=== PATIENT | female | born 1955 | race Caucasian/White ===

== ENCOUNTER → 2017-06-03 | Outpatient (CLI) | payer OTHER | LOC: FIMAGING 11:21 | PROVIDERS: ATTEND Physician Assistant | DX: R05 Cough (principal) ==

== ENCOUNTER 2017-11-07 11:02 | Emergency (ER) | payer OTHER ==
[2017-11-07] MEDS ORDERED: NS 1,000 ML IV ONE (11:53)
--- NOTE | 2017-11-07 11:53 | EDPHY ---
General Time Seen by Provider: 11/07/17 11:36 Narrative: CHIEF COMPLAINT: I think I have a kidney stone HISTORY OF PRESENT ILLNESS: Patient presents with complaints of "I think I have a kidney stone." She reports a sudden onset of left-sided flank pain that started this morning around 9:00 a.m.. Started while she was at work. Constant duration. Moderate to severe. The pain has spontaneously improved prior to arrival here. It was associated with nausea, subjective fever and left lower abdominal pain. At this time she has no complaints of pain. She has 1 previous incident of kidney stone that felt the same to her. No trauma or injury. No bloody stools. No constipation. No abdominal surgeries. REVIEW OF SYSTEMS: 10 systems were reviewed and negative with the exception of the elements mentioned in the history of present illness. PCP: Dr. Hui SPECIALISTS: None PAST MEDICAL HISTORY: Type 2 diabetes, kidney so, hypothyroid, hypertension PAST SURGICAL HISTORY: No surgical history SOCIAL HISTORY: Nonsmoker. Lives here independently. Works as a teacher and elementary education. FAMILY HISTORY: Noncontributory EXAMINATION: General Appearance: Alert, no distress Head: normocephalic, atraumatic Eyes: Pupils equal and round, no conjunctival pallor or injection ENT, Mouth: Mucous membranes moist Neck: Normal inspection, supple, non-tender Respiratory: Lungs are clear to auscultation Cardiovascular: Regular rate and rhythm Gastrointestinal: Abdomen is soft and nondistended. There is left CVA tenderness. No guarding. No rigidity. Bowel sounds are present all 4 quadrants Back: non-tender, no bony abnormalities Neurological: A&O, nonfocal, normal gait Skin: Warm and dry, no rash Extremities: Nontender, no pedal edema Psychiatric: Mood and affect normal DIFFERENTIAL DIAGNOSES: Including but not limited to renal colic, ureteral stone, bladder calculus, cystitis, hydronephrosis, pyelonephritis MDM: 11:50 a.m. Left-sided flank pain with feeling of renal colic for the patient. Her pain has significantly improved since time of departure from her home. Her abdominal exam is unremarkable. Vital signs within normal limits. I have ordered laboratory studies, IV fluid. She is declining pain medication. She is requesting a CT scan to evaluate for the possible stone. I have ordered this at her request and I do feel it is likely she does have a renal colic. 12:30 p.m. Notified by radiologist Dr. Us. Left-sided horseshoe kidney with a 3 mm stone near the UVJ with moderate hydronephrosis. There is a right-sided nonobstructing nephrolithiasis. 12:50 p.m. Patient re-evaluated. I discussed the findings with her. She continues to complain of no pain at this time. We discussed the likelihood of passed stone. We discussed hydronephrosis in the need for increase fluid intake. We discussed the importance of Urology follow-up palpation. We discussed ED precautions for return of pain, fever, difficulty urinating. She will be discharged home with short course of pain medication nausea medication. She is comfortable this plan. She is well-appearing and discharged home stable condition. SUPERVISION: This patient was independently evaluated without direct involvement of or examination by the attending physician. CONSULTATION: None. Urology referral - Diagnostics Imaging Results: Imaging Impressions Abdomen/Pelvis CT 11/07/17 11:53 Impression: 1. 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 2. Nonobstructive right nephrolithiasis. 3. Left perinephric and paracolic fluid. 4. Atherosclerotic aorta without aneurysm. 5. L5-S1 degenerative changes resulting in mild to moderate central canal stenosis. Attention: This CT examination is specifically designed to evaluate patients who are clinically suspected of having acute obstructive uropathy. This examination does not use radiographic contrast, and as such, provides only a limited evaluation of the abdomen, pelvis and retroperitoneum. If there is further clinical suspicion for pathological conditions other than obstructive uropathy, a complete CT evaluation of the abdomen and pelvis utilizing intravenous, oral, and rectal contrast should be considered. Findings and recommendations discussed with Emergency Department physician, Jeffrey Wilkes PA-C at 1235 hour, 11/07/2017. Final report concurs with initial preliminary interpretation. - History Smoking Status: Never smoked - Objective Vital Signs: Initial Vital Signs Temperature (C) 99.1 F 11/07/17 11:11 Heart Rate 93 11/07/17 11:11 Respiratory Rate 18 11/07/17 11:11 Blood Pressure 164/75 H 11/07/17 11:11 O2 Sat (%) 95 11/07/17 11:11 O2 Delivery Mode Room Air Allergies/Adverse Reactions: azithromycin Allergy (Verified 11/07/17 11:15) Penicillins Allergy (Verified 11/07/17 11:15) Sulfa (Sulfonamide Antibiotics) Allergy (Verified 11/07/17 11:15) Home Medications: Medication Instructions Recorded Levothyroxine Sodium 11/07/17 Lisinopril 11/07/17 Metformin HCl 11/07/17 Ondansetron Odt [Zofran Odt 4 mg 4 mg PO Q6 PRN #12 tab 11/07/17 (*)] oxyCODONE HCL/ACETAMINOPHEN 1 each PO Q4-6PRN PRN #5 tablet 11/07/17 [Percocet 5-325 mg Tablet] traMADol 11/07/17 Laboratory Results: Laboratory Results 11/07/17 11:50 11/07/17 11:50 11/07/17 11/07/17 11/07/17 11:50 11:50 11:35 WBC 14.43 10^3/uL H 10^3/uL (3.80-9.50) RBC 5.33 10^6/uL 10^6/uL (4.18-5.33) Hgb 15.6 g/dL g/dL (12.6-16.3) Hct 45.2 % % (38.0-47.0) MCV 84.8 fL fL (81.5-99.8) MCH 29.3 pg pg (27.9-34.1) MCHC 34.5 g/dL g/dL (32.4-36.7) RDW 12.9 % % (11.5-15.2) Plt Count 374 10^3/uL 10^3/uL (150-400) MPV 10.8 fL fL (8.7-11.7) Neut % (Auto) 88.3 % H % (39.3-74.2) Lymph % (Auto) 9.7 % L % (15.0-45.0) [place] % (Auto) 1.5 % L % (4.5-13.0) Eos % (Auto) 0.0 % L % (0.6-7.6) Baso % (Auto) 0.2 % L % (0.3-1.7) Nucleat RBC Rel Count 0.0 % % (0.0-0.2) Absolute Neuts (auto) 12.73 10^3/uL H 10^3/uL (1.70-6.50) Absolute Lymphs (auto) 1.40 10^3/uL 10^3/uL (1.00-3.00) Absolute Monos (auto) 0.22 10^3/uL L 10^3/uL (0.30-0.80) Absolute Eos (auto) 0.00 10^3/uL L 10^3/uL (0.03-0.40) Absolute Basos (auto) 0.03 10^3/uL 10^3/uL (0.02-0.10) Absolute Nucleated RBC 0.00 10^3/uL 10^3/uL (0-0.01) Immature Gran % 0.3 % % (0.0-1.1) Immature Gran # 0.05 10^3/uL 10^3/uL (0.00-0.10) Sodium 142 mEq/L mEq/L (135-145) Potassium 3.9 mEq/L mEq/L (3.3-5.0) Chloride 105 mEq/L mEq/L (97-110) Carbon Dioxide 25 mEq/l mEq/l (22-31) Anion Gap 12 mEq/L mEq/L (8-16) BUN 12 mg/dL mg/dL (7-23) Creatinine 0.9 mg/dL mg/dL (0.6-1.0) Estimated GFR > 60 Glucose 130 mg/dL H mg/dL (70-100) Calcium 10.0 mg/dL mg/dL (8.5-10.4) Lipase 67 IU/L IU/L (23-300) Urine Color YELLOW Urine Appearance CLEAR Urine pH 6.0 (5.0-7.5) Ur Specific [place] 1.017 (1.002-1.030) Urine Protein NEGATIVE (NEGATIVE) Urine Ketones 1+ H (NEGATIVE) Urine Blood NEGATIVE (NEGATIVE) Urine Nitrate NEGATIVE (NEGATIVE) Urine Bilirubin NEGATIVE (NEGATIVE) Urine Urobilinogen NEGATIVE EU EU (0.2-1.0) Ur Leukocyte Esterase NEGATIVE (NEGATIVE) Urine Glucose NEGATIVE (NEGATIVE) Medications Given: Discontinued Medications Sodium Chloride (Ns) 1,000 mls @ 0 mls/hr IV EDNOW ONE; Wide Open PRN Reason: Protocol Stop: 11/07/17 11:54 Last Admin: 11/07/17 12:29 Dose: 1,000 mls Departure - Departure Disposition: Home, Routine, Self-Care Clinical Impression: Bladder calculus, Renal colic on left side, Nephrolithiasis Hydronephrosis Qualifiers: Hydronephrosis type: with ureteral calculous obstruction Qualified Code(s): N13.2 - Hydronephrosis with renal and ureteral calculous obstruction Condition: Good Instructions: Kidney Stones (ED), Renal Colic (ED), How to Strain Your Urine ( ED) Additional Instructions: 1. Increase fluid intake for the next few days 2. Urine strainer as demonstrated 3. Contact the urologist for outpatient care 4. ED precautions for return of pain, flank pain, fever, nausea vomiting 5. Pain medication nausea medication as prescribed as needed Referrals: Rebecca Harmon MD [Primary Care Provider] - As per Instructions Rickie Helms MD [Medical Doctor] - As per Instructions Stand Alone Forms: Work Excuse Prescriptions: Ondansetron Odt [Zofran Odt 4 mg (*)] 4 mg PO Q6 PRN #12 tab PRN Reason: Nausea/Vomiting, Use 1st oxyCODONE HCL/ACETAMINOPHEN [Percocet 5-325 mg Tablet] 1 each PO Q4-6PRN PRN #5 tablet PRN Reason: Pain, Breakthrough
[2017-11-07 12:12] LABS: PLATELET COUNT 374 10^3/uL (150-400)
[2017-11-07 12:32] VITALS: BP 145/73
== END 2017-11-07 13:17 | disposition home or self-care (01) ==
DX: N13.2 Hydronephrosis with renal and ureteral calculous obstruction (principal); E86.9 Volume depletion, unspecified; Q63.1 Lobulated, fused and horseshoe kidney